=== PATIENT | male | born 1970 | race African-American/Black ===

== ENCOUNTER 2019-08-17 18:59 | Emergency (ER) | payer SELFPAY ==
[~2019-08-17] VITALS: Ht 172.7 cm; Wt 90.7 kg
[2019-08-17 19:18] VITALS: BP 145/94
[2019-08-17] MEDS ORDERED: CHLO15MO2 SWSP (19:39)
[2019-08-17] MEDS ORDERED: PENI500T PO (19:39)
--- NOTE | 2019-08-17 19:39 | PHYS DOC ---
Past Medical History Past Medical History: Hypertension Past Surgical History: No Surgical History Alcohol Use: None Drug Use: None Adult General Chief Complaint Chief Complaint: DENTAL PROBLEM HPI HPI Patient is a 49 year old AA male who presents to the emergency department with complaints of left upper dental pain in gum swelling for the last week. Patient states that the area started to drain pus yesterday. He denies any fever, cough, shortness of breath, wheezing, sore throat, abdominal pain, nausea, or vomiting. Patient states he has an appointment scheduled with a dentist in 3 days. He currently rates his pain as 7 out of 10 on the pain scale, taking some [id number] fever irrigator valve pipe for relief of his pain. All other ROS is neg unless otherwise noted in HPI. Review of Systems Review of Systems See Above Allergies Allergies Allergies Coded Allergies Type Severity Reaction Last Updated Verified No Known Drug Allergies 08/17/19 No Physical Exam Physical Exam See Above Constitutional: Well developed, well nourished, no acute distress, non-toxic appearance. [] HENT: Normocephalic, atraumatic, bilateral external ears normal, bilateral TMs normal, oropharynx moist, no oral exudates, nose normal; left upper dental abscess medially with bloody pus drainage, no fluctuance, diffuse gingival erythema and edema and left upper quadrant consistent with gingivitis [] Eyes: PERRLA, EOMI, conjunctiva normal, no discharge. [] Neck: Normal range of motion, no tenderness, supple, no stridor. [] Cardiovascular:Heart rate regular rhythm Lungs & Thorax: Respirations even and unlabored, no retractions, no respiratory distress Skin: Warm, dry, no erythema, no rash. [] Extremities: No cyanosis, ROM intact Neurologic: Alert and oriented X 3, no focal deficits noted. [] Psychologic: Affect normal, judgement normal, mood normal. [] Current Patient Data Vital Signs Vital Signs Date Time Temp Pulse Resp B/P (MAP) Pulse Ox O2 Delivery O2 Flow Rate FiO2 08/17/19 19:18 98.9 88 16 145/94 (111) 99 Room Air 98.9 EKG EKG [] Radiology/Procedures Radiology/Procedures [] Course & Med Decision Making Course & Med Decision Making Pertinent Labs and Imaging studies reviewed. (See chart for details) [] Dragon Disclaimer Dragon Disclaimer This electronic medical record was generated, in whole or in part, using a voice recognition dictation system. Departure Departure Impression: Primary Impression: Infected dental caries Additional Impressions: Gingivitis, acute Dentalgia Dental abscess Disposition: 01 HOME, SELF-CARE Condition: STABLE Referrals: JUANCARLOS BURRELL MD (PCP) Patient Instructions: Dental Abscess, Dental Pain, [id number], Gingivitis, [id number] Additional Instructions: Fill prescription(s) and use as directed. Take Tylenol or ibuprofen as needed for pain. Follow up with dentist using the referral list provided. Return to the ER if symptoms worsen. Scripts Chlorhexidine Gluconate (PERIDEX) 15 Ml Mouthwash 15 ML SWSP BID for 7 Days, #473 ML 0 Refills [place] teeth before using to prevent staining. Swish for approximately 30 seconds before spitting. Prov: YOLANDA BROUSSARD APRN 08/17/19 Penicillin V Potassium (PENICILLIN V POTASSIUM) 500 Mg Tablet 1 TAB PO QID for 10 Days, #40 TAB 0 Refills Prov: YOLANDA BROUSSARD APRN 08/17/19 Problem Qualifiers YOLANDA BROUSSARD APRN Aug 17, 2019 19:39
== END 2019-08-17 19:54 | disposition home or self-care (01) ==
LOC: ER 18:59
DX: K02.9 Dental caries, unspecified (principal); K05.00 Acute gingivitis, plaque induced; K04.7 Periapical abscess without sinus; K08.89 Other specified disorders of teeth and supporting structures; I10 Essential (primary) hypertension
CPT/HCPCS: 99283